=== PATIENT | male | born 1965 | race Caucasian/White ===

== ENCOUNTER 2021-09-19 15:36 | Emergency (ER) | payer OTHER ==
[~2021-09-19] VITALS: Ht 177.8 cm; Wt 68.0 kg
[2021-09-19 15:38] VITALS: BP_SYST 145
--- NOTE | 2021-09-19 15:40 | NUR ---
Patient brought ambulatory to room 4 per broker in charge.
--- NOTE | 2021-09-19 15:42 | NUR ---
Patient awake, alert and oriented x 3. Laceration to left index finger sustained while using a "meat andra." Awaiting suture/lac repair.
--- NOTE | 2021-09-19 15:42 | NUR ---
Dr Virgen to bedside to assess patient
[2021-09-19] MEDS ORDERED: BACITRACIN 1 GM OINT TP ONE (15:45)
[2021-09-19] MEDS ORDERED: DIPH-TET-PERTUS Vaccine 0.5 ML VIAL (ADACEL) I.M. ONE (15:45)
--- NOTE | 2021-09-19 16:04 | NUR ---
Patient given written and verbal discharge instructions and verbalizes understanding. ER MD discussed with patient the results and treatment provided. Patient in stable condition. ID arm band removed. Patient educated on pain management and to follow up with PMD. Pain scale 0/10. Opportunity for questions provided and answered. Medication side effect fact sheet provided.
== END 2021-09-19 16:05 | disposition home or self-care (01) ==
LOC: SED 15:36
DX: S61.211A Laceration without foreign body of left index finger without damage to nail, initial encounter (principal); W45.8XXA Other foreign body or object entering through skin, initial encounter; Y93.89 Activity, other specified; Y92.89 Other specified places as the place of occurrence of the external cause; Y99.8 Other external cause status
CPT/HCPCS: 90715; 99283